=== PATIENT | male | born 1965 | race Caucasian/White ===

== ENCOUNTER 2021-11-09 07:59 | Emergency (ER) | payer SELFPAY ==
[~2021-11-09] VITALS: Ht 172.7 cm; Wt 91.2 kg
[2021-11-09] MEDS ORDERED: ELIQUIS5 MG PO (10:31)
--- NOTE | 2021-11-11 17:50 | EKG ---
[facility] [address] [facility] [place] [address] Signed Atrial flutter with variable AV block Left anterior fascicular block Inferior infarct , age undetermined Anterolateral infarct , age undetermined Abnormal ECG No previous ECGs available Confirmed by SARAH RIOS MD ([id number]) on 11/11/2021 5:50:05 PM Electronically Signed By: SARAH RIOS MD 11/11/21 1750 PATIENT NAME: MARGARET ANDRADE Electrocardiogram DATE OF : 67 PHYSICIAN: SARAH RIOS MD REPORT #: [id number] REPORT IS CONFIDENTIAL AND NOT TO BE RELEASED WITHOUT AUTHORIZATION
== END 2021-11-09 12:40 | disposition home or self-care (01) ==
LOC: ED 07:59
DX: I48.91 Unspecified atrial fibrillation (principal); E11.9 Type 2 diabetes mellitus without complications; Z88.0 Allergy status to penicillin; Z88.1 Allergy status to other antibiotic agents
CPT/HCPCS: 36415; 71045; 80048; 83735; 84484; 85025; 93005; 93010; 96374; 99285-25

== ENCOUNTER 2022-10-18 07:00 | Day surgery (SDC) | payer OTHER ==
[~2022-10-18] VITALS: Ht 172.7 cm; Wt 88.4 kg
[~2022-10-18 07:00] MED LIST: ATORVASTATIN CA80 MG PO; CHILDREN'S ASPI81 M1 PO; ELIQUIS5 MG PO; FLAX SEED OIL1 EACH PO; GARLIC1000 MG PO; JARDIANCE10 MG PO; LOSARTAN POTASS25 MG PO; METFORMIN HCL1000 MG PO; TOPROL XL100 MG PO; VITAMIN D310 MC1 PO
[2022-10-18] MEDS ORDERED: TURMERIC500 M2 PO (07:38)
[2022-10-18] MEDS ORDERED: MAGNESIUM400 MG PO (07:42)
[2022-10-18] MEDS ORDERED: NOVOLOG100 UNIT/2 SUB-Q (07:42)
--- NOTE | 2022-10-18 07:58 | NUR ---
PT ARRIVES EARLY FOR HIS PROCEDURE THIS MORNING. HE IS ADVISED THAT HE WILL HAVE A BIT OF A WAIT. PT AND VERBALIZE UNDERSTANDING.
--- NOTE | 2022-10-18 08:32 | NUR ---
PT AND ARRIVED EARLY, HERE FOR PTS' FIRST SCOPE. PT HAD DIFFICULTY WITH PREP DROPPING HIS BS. GAVE SUPPORT, WILL REMAIN FOR DC. JEREMY PABLO IN TO PREP PT. GAVE BLESSING AND WILL FOLLOW
--- NOTE | 2022-10-18 09:31 | NUR ---
10/18/22 0931 Lena Chu 0925 PATIENT ARRIVES TO PACU RESTING WITH EYES CLOSED. OPENS EYES WITH VERBAL STIMULI. RESP EVEN AND UNLABORED, NC AT 4 LITERS TURNED OFF ON ARRIVAL TO PACU.
--- NOTE | 2022-10-18 10:58 | OR ---
[facility] [address] [place], [place] [address] Signed DATE OF OPERATION: 10/18/2022 SURGEON: Lin Law MD PREOPERATIVE DIAGNOSIS: Screening. POSTOPERATIVE DIAGNOSIS: 4 mm polyp proximal right colon. PROCEDURE: Colonoscopy with hot biopsy. ESTIMATED BLOOD LOSS: None. INDICATIONS: Margaret is a 57-year-old gentleman, asked to see me for his initial screening colonoscopy. He has no lower GI complaints. There is no family history of colon cancer or polyps. His had reminded me that I helped her with a colonoscopy several years ago. In the office, I gave him a pamphlet on colonoscopy. We reviewed the nature of the test. There is risk including, but not limited to gas bloating, crampy abdominal pain, bleeding, perforation requiring surgery, and missed diagnosis. We also reviewed the written instructions for the bowel prep line by line. He held his Eliquis and his aspirin. He also has rather significant coronary artery disease requiring bypass grafts. He has hypertension as well and diabetes. He is awaiting disability. We asked for monitored anesthesia care with propofol infusion based on the above. He had expressed understanding and wished to proceed. PROCEDURE NOTE: Margaret was taken into our endoscopy suite and placed in the left lateral decubitus position. He was given IV propofol per our nurse occupational therapy teacher. A digital rectal exam was performed and this was unremarkable. He has no external hemorrhoids. He had good sphincter tone. There were no masses. Prostate is a little indurated. The adult colonoscope was introduced, advanced all around into the cecum under direct visualization of the camera without difficulty. His prep was overall average. There were a couple areas particularly on the left side that we could not quite suction out completely because of the particulate stool matter. He would be better served with more prep in the future. We had taken pictures throughout for photodocumentation. The scope was then slowly withdrawn. We could see a small 4 mm polyp in his proximal right colon. Electronically Signed By: LIN LAW MD 10/18/22 1058 PATIENT NAME: MARGARET ANDRADE OPERATIVE REPORT DATE OF : 67 REPORT #: [id number] PHYSICIAN: LIN LAW MD PCP: MARIA DEL CARMEN REINA MD REPORT IS CONFIDENTIAL AND NOT TO BE RELEASED WITHOUT AUTHORIZATION [address] [address] Signed It was easily removed with the hot biopsy forceps. There was no diverticulosis. Once in the rectum, it was unremarkable. The scope had been retroflexed and we did not see any obvious pathology above the anal canal. After this, the gas was suctioned out and the colonoscope removed. Margaret tolerated the procedure quite well. RECOMMENDATIONS: I will see Margaret back in my office in 7 to 14 days to review his results. In addition, he will need a double bowel prep in the future. Lin Law MD ALB/MODL /[id number] cc: MD Lin Harrington MD Copies: MARIA DEL CARMEN REINA MD, ANDREW L MD ~ Electronically Signed By: LIN LAW MD 10/18/22 1058 PATIENT NAME: MARGARET ANDRADE OPERATIVE REPORT DATE OF : 67 REPORT #: [id number] PHYSICIAN: LIN LAW MD PCP: MARIA DEL CARMEN REINA MD REPORT IS CONFIDENTIAL AND NOT TO BE RELEASED WITHOUT AUTHORIZATION
--- NOTE | 2022-10-22 14:05 | PATH ---
[facility] [address] [facility] [place] [address] Signed SPECIMEN(S): A PROXIMAL ASCENDING/RIGHT POLYP SPECIMEN SOURCE: A. PROXIMAL ASCENDING/RIGHT POLYP CLINICAL HISTORY: Pre: Initial screening colonoscopy. Post: Polyp x 1. FINAL PATHOLOGIC DIAGNOSIS: Proximal ascending/right colon polyp: - Tubular adenoma (one fragment). JVR:norman:[id number] MICROSCOPIC EXAMINATION: Histologic sections of all submitted blocks are examined by light microscopy. These findings, together with the gross examination, support the pathologic diagnosis. GROSS DESCRIPTION: The specimen, labeled and designated "Ethan, proximal ascending/right polyp," is received in formalin and consists of one domingo soft tissue fragment, 0.2 cm. Entirely submitted in (A1). VB (under the direct supervision of a pathologist) The Gross Description was prepared using a voice recognition system. The report was reviewed for accuracy; however, sound-alike word errors, addition and/or deletions may occur. If there is any question about this report, please contact Client Services. PERFORMING LABORATORY: The technical component was performed by [facility], [address] [place] [id number] (CLIA# [id number]). Professional interpretation was performed by [facility], [address] [place] [id number] (CLIA#: [id number]). Diagnostician: Aden Ward MD Pathologist Electronically Signed 10/22/2022 Copies: PATIENT NAME: MARGARET ANDRADE PATHOLOGY DATE OF : 67 REPORT #: [id number] PHYSICIAN: [facility] PCP: MARIA DEL CARMEN REINA MD REPORT IS CONFIDENTIAL AND NOT TO BE RELEASED WITHOUT AUTHORIZATION [address] [address] Signed ~ PATIENT NAME: MARGARET ANDRADE PATHOLOGY DATE OF : 67 REPORT #: [id number] PHYSICIAN: [facility] PCP: MARIA DEL CARMEN REINA MD REPORT IS CONFIDENTIAL AND NOT TO BE RELEASED WITHOUT AUTHORIZATION
== END 2022-10-18 09:55 | disposition home or self-care (01) ==
LOC: OPS 07:00 → DS 07:00 → OPS 08:50 → DS 10:30
PROVIDERS: ATTEND Colon & Rectal Surgery
PROC: 0DBG8ZX Excision of Left Large Intestine, Via Natural or Artificial Opening Endoscopic, Diagnostic (ICD-10-PCS; principal; 2022-10-18 08:50)
DX: Z12.11 Encounter for screening for malignant neoplasm of colon (principal); D12.2 Benign neoplasm of ascending colon; I25.10 Atherosclerotic heart disease of native coronary artery without angina pectoris; E11.9 Type 2 diabetes mellitus without complications; I10 Essential (primary) hypertension; Z88.0 Allergy status to penicillin; Z88.2 Allergy status to sulfonamides; E66.9 Obesity, unspecified; Z95.1 Presence of aortocoronary bypass graft
CPT/HCPCS: J2704; J7121

== ENCOUNTER 2023-07-14 10:36 | Emergency (ER) | payer MEDICARE, OTHER ==
[~2023-07-14] VITALS: Ht 172.7 cm; Wt 83.5 kg
--- NOTE | ~2023-07-14 | EKG ---
[facility] [address] [facility] [place], [place] [address] Draft EK completed, results pending confirmation PATIENT NAME: MARGARET ANDRADE CASTILLO Electrocardiogram DATE OF : 67 PHYSICIAN: PRELIMINARY REPORT #: [id number] REPORT IS CONFIDENTIAL AND NOT TO BE RELEASED WITHOUT AUTHORIZATION
[~2023-07-14 10:36] MED LIST changes: +MAGNESIUM400 MG PO; +NOVOLOG100 UNIT/2 SUB-Q; +TURMERIC500 M2 PO
[2023-07-14 11:24] LABS: HEMATOCRIT 45.3 % (35.0-50.0); HEMOGLOBIN 15.1 g/dL (12.0-18.0); LYMPHOCYTES 18.8 % (24-44); MCH 30.5 (27-36); MCHC 33.3 g/dl (30-36); MCV 91.6 fl (81-99); MONOCYTES 10.1 % (0-12); NEUTROPHILS 64.1 % (39-80); PLATELET COUNT 253 K/uL (140-440); RBC 4.94 M/ul (4.3-5.7); RDW 13.8 (10.5-15.0)
[2023-07-14 11:41] LABS: ALBUMIN 3.5 g/dL (3.4-5.0); ALBUMIN/GLOBULIN RATIO 1.03 (1.1-2.4); ANION GAP 16.9 (7-21); BILIRUBIN, TOTAL 0.5 ng/dL (0.2-1.0); BUN/CREATININE RATIO 14.58 (6.0-28.6); CALCIUM 9.3 mg/dL (8.5-10.1); CREATININE, SERUM 0.96 mg/dL (0.70-1.30); MAGNESIUM 1.9 mg/dL (1.8-2.4); POTASSIUM 3.9 mmol/L (3.5-5.1); PROTEIN, TOTAL 6.9 g/dL (6.4-8.2)
[2023-07-14 13:09] VITALS: BP 108/77
== END 2023-07-14 13:00 | disposition home or self-care (01) ==
LOC: ED 10:36
PROVIDERS: Emergency Medicine
DX: I48.91 Unspecified atrial fibrillation (principal); E11.9 Type 2 diabetes mellitus without complications; Z88.0 Allergy status to penicillin; Z88.2 Allergy status to sulfonamides; Z88.1 Allergy status to other antibiotic agents; Z79.01 Long term (current) use of anticoagulants; Z79.4 Long term (current) use of insulin; Z79.82 Long term (current) use of aspirin; Z79.899 Other long term (current) drug therapy; Z79.84 Long term (current) use of oral hypoglycemic drugs
CPT/HCPCS: 36415; 80053; 83735; 84484; 85025; 93005; 93010

== ENCOUNTER 2024-04-30 19:46 | Emergency (ER) | payer MEDICARE, OTHER ==
[~2024-04-30] VITALS: Ht 172.7 cm; Wt 86.0 kg
[~2024-04-30 19:46] MED LIST changes: +DOXYCYCLINE HY100 MG PO; +GLIMEPIRIDE4 MG PO; +K-TAB ER20 MEQ PO; +MEDROL4 M1 PO; +NOVOLOG FL100 UNIT/1 SUB-Q
[2024-04-30 21:37] LABS: BILIRUBIN, URINE NEGATIVE (negative); BLOOD/HGB, URINE LARGE (Negative); KETONE, URINE NEGATIVE (Negative); LEUK ESTERASE, URINE TRACE (negative); NITRITE, URINE NEGATIVE (negative); PH, URINE 7.5 (5-7)
[2024-04-30 21:45] LABS: RED BLOOD CELLS, URINE 21-40 /hpf (0-5)
[2024-04-30 21:46] LABS: BACTERIA, URINE RARE /hpf (negative); CASTS, URINE NONE SEEN \\lpf; COLLECTION TYPE, URINE CLEAN CATCH; CRYSTALS, URINE NONE SEEN (0-1+); EPITHELIAL CELLS, URINE NS /lpf (0-1+); REFLEX CULTURE, URINE No (No)
[2024-04-30] MEDS ORDERED: MACROBID 100 M100 MG PO (22:17)
[2024-04-30] MEDS ORDERED: NITROFURANTOIN MONOHYD MACROCR 100 MG HOME.PACK PO ONE (22:30)
[2024-04-30 22:31] VITALS: BP 137/84
== END 2024-04-30 22:32 | disposition home or self-care (01) ==
LOC: ED 19:46
PROVIDERS: Family Medicine
DX: T83.091A Other mechanical complication of indwelling urethral catheter, initial encounter (principal); E11.9 Type 2 diabetes mellitus without complications; Y73.8 Miscellaneous gastroenterology and urology devices associated with adverse incidents, not elsewhere classified; Z88.0 Allergy status to penicillin; Z88.1 Allergy status to other antibiotic agents; Z88.2 Allergy status to sulfonamides; Z79.01 Long term (current) use of anticoagulants; Z79.4 Long term (current) use of insulin; Z79.84 Long term (current) use of oral hypoglycemic drugs; Z79.82 Long term (current) use of aspirin; Z79.899 Other long term (current) drug therapy
CPT/HCPCS: 81001; 99283

== ENCOUNTER 2024-05-12 14:57 | Emergency (ER) | payer MEDICARE, OTHER ==
[~2024-05-12] VITALS: Ht 172.7 cm; Wt 85.5 kg
[~2024-05-12 14:57] MED LIST changes: +MACROBID 100 M100 MG PO
--- OUTSIDE RECORDS SUMMARY | 2024-05-12 14:57 | XMS ---
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 Jignesh VISIT COUNT (12 MO.) [address] [place] [address] TOTAL 4 NOTE: Visits indicate total known visits. ED/UCC VISIT TRACKING (12 MO.) 05/12/2024 14:57 [facility] TYPE: Emergency COMPLAINT: - CATH ISSUE 05/03/2024 17:27 [facility] TYPE: Emergency COMPLAINT: - CATH ISSUE 04/30/2024 19:47 [facility] TYPE: Emergency COMPLAINT: - CATHATER ISSUE DIAGNOSES: - Allergy status to other antibiotic agents - Allergy status to penicillin - Allergy status to sulfonamides - group home (current) use of anticoagulants - intermission coordinator (current) use of aspirin - group home (current) use of insulin - intermission coordinator (current) use of oral hypoglycemic drugs - Miscellaneous gastroenterology and urology devices associated with adverse incidents, not elsewhere classified - Other care home (current) drug therapy - Other mechanical complication of indwelling urethral catheter, initial encounter - Type 2 diabetes mellitus without complications 07/14/2023 10:[address] [facility] [place] TYPE: Emergency COMPLAINT: - HEART FLUTTERS DIAGNOSES: - Allergy status to other antibiotic agents - Allergy status to penicillin - Allergy status to sulfonamides - group home (current) use of anticoagulants - group home (current) use of aspirin - group home (current) use of insulin - intermission coordinator (current) use of oral hypoglycemic drugs - Other care home (current) drug therapy - Palpitations - Type 2 diabetes mellitus without complications - Unspecified atrial fibrillation INPATIENT VISIT TRACKING (12 MO.) No inpatient visits to display in this time frame [email or web address]
[2024-05-12 19:23] VITALS: BP 116/74
== END 2024-05-12 20:27 | disposition home or self-care (01) ==
LOC: ED 14:57
DX: T83.098A Other mechanical complication of other urinary catheter, initial encounter (principal); E11.9 Type 2 diabetes mellitus without complications; I48.91 Unspecified atrial fibrillation; Z79.4 Long term (current) use of insulin; Z79.82 Long term (current) use of aspirin; Z79.84 Long term (current) use of oral hypoglycemic drugs; Z88.2 Allergy status to sulfonamides; Z88.0 Allergy status to penicillin; Z88.1 Allergy status to other antibiotic agents
CPT/HCPCS: 51798; 99283-25